=== PATIENT | female | born 1965 | race African-American/Black ===

== ENCOUNTER 2016-12-01 20:24 | Emergency (ER) | payer BC ==
[~2016-12-01] VITALS: Ht 167.6 cm; Wt 68.0 kg
[2016-12-01 23:58] VITALS: BP 127/104
== END 2016-12-01 23:58 | disposition home or self-care (01) ==
LOC: ED 20:24
DX: H81.10 Benign paroxysmal vertigo, unspecified ear (principal); R03.0 Elevated blood-pressure reading, without diagnosis of hypertension; R11.2 Nausea with vomiting, unspecified
CPT/HCPCS: J2405; J3360; J7030; J8597